=== PATIENT | female | born 1995 | race Caucasian/White ===

== ENCOUNTER 2025-03-15 21:13 | Emergency (ER) | payer MEDICAID, OTHER ==
[~2025-03-15] VITALS: Ht 154.9 cm; Wt 54.4 kg
[2025-03-15 22:10] LABS: PLATELET COUNT (AUTO) 297 K/uL (150-450); RED BLOOD CELL COUNT(AUTO) 5.47 MIL/uL (4.0-5.2); RED CELL DISTRIBUTION WIDTH 18.5 % (11.5-15.0); WHITE BLOOD COUNT (AUTO) 11.4 K/uL (4.3-11.0)
[2025-03-15 22:14] LABS: CALCIUM, SERUM 9.0 mg/dL (8.5-10.1); CREATININE 0.7 mg/dL (0.6-1.3); SODIUM SERUM 138 mmol/L (136-145); UREA NITROGEN, BLOOD 11 mg/dL (7-18)
[2025-03-15 22:29] LABS: ALCOHOL, BLOOD 122 mg/dL (0-10); ASPARTATE AMINOTRANSFERASE 22 U/L (15-37); TOTAL PROTEIN, SERUM 8.8 g/dL (6.4-8.2)
[2025-03-15 22:30] LABS: APPEARANCE,URINE TURBID (CLEAR); BLOOD, URINE 2+ Ery/uL (NEGATIVE); LEUKOCYTE ESTERASE ,URINE NEGATIVE (NEGATIVE); NITRITE, URINE NEGATIVE (NEGATIVE); UGLUCOSE NEGATIVE (NEGATIVE)
[2025-03-15 22:36] LABS: ADD URINE CULTURE NO; SQUAMOUS EPITHELIAL CELL,UR Moderate /HPF (None Seen)
[2025-03-15 22:39] LABS: BARBITURATE, URINE NEGATIVE (NEGATIVE); BENZODIAZEPINE, URINE NEGATIVE (NEGATIVE); CANNABINOID, URINE NEGATIVE (NEGATIVE); COCCAINE, URINE NEGATIVE (NEGATIVE); OPIATE, URINE NEGATIVE (NEGATIVE)
[2025-03-15 22:40] LABS: AMPHETAMINE, URINE POSITIVE (NEGATIVE)
[2025-03-15] MEDS ORDERED: LORAZEPAM INJ 2 MG/ML VIAL ONE (22:55)
[2025-03-15] MEDS: LORAZEPAM INJ 2 MG/ML VIAL IM ONE (22:59)
[2025-03-15] MEDS: IV NS 0.9% 1,000 ML BAG IV ONE (23:17)
[2025-03-16 00:34] VITALS: BP 124/88; TEMP 98.4; O2SAT 100
== END 2025-03-16 00:35 | disposition home or self-care (01) ==
LOC: ER 21:17
DX: F19.10 Other psychoactive substance abuse, uncomplicated (principal); F41.9 Anxiety disorder, unspecified; R06.02 Shortness of breath; Z91.048 Other nonmedicinal substance allergy status; Z60.2 Problems related to living alone; Z79.899 Other long term (current) drug therapy
CPT/HCPCS: 99284; 96372; 96360; 71045; 85025; 80048; 80076; 81001; 36415; 80143; 80320; 80307; J2060; J7030; G0480